=== PATIENT | male | born 1970 | race Caucasian/White ===

== ENCOUNTER 2019-12-27 10:53 | Emergency (ER) | payer OTHER, SELFPAY ==
[2019-12-27 11:13] VITALS: BP 150/100; PULSE 88; RESP 18; TEMP 36.3; O2SAT 95; BMI 36.6
--- NOTE | 2019-12-27 12:41 | ED.MEDCLEAR ---
HPI - Medical Clearance General Chief complaint: Medical Clearance <KEVIN Houser Last Filed: 12/27/19 14:01> Stated complaint: MEDICAL CLEARANCE <KEVIN Houser Last Filed: 12/27/19 14:01> Time Seen by Provider: 12/27/19 12:04 <KEVIN Houser Last Filed: 12/27/19 14:01> Source: patient <KEVIN Houser Last Filed: 12/27/19 14:01> Mode of arrival: ambulatory <KEVIN Houser Last Filed: 12/27/19 14:01> History of Present Illness HPI Narrative: 49-year-old male with the past medical history of bipolar, schizoaffective disorder presenting to ED requesting medication review for schizoaffective disorder. Reports feels like his dosages are too high. Denies recent change in medications. Does report missing about 4 days due to being out of the area. Denies SI/HI. <KEVIN Houser Last Filed: 12/27/19 14:01> Related Information Home medications: Home Medications Medication Instructions Recorded Confirmed benztropine 0.5 mg PO DAILY 12/27/19 12/27/19 lisinopril 10 mg PO DAILY 12/27/19 12/27/19 omega-3 fatty acids [[place] 3] 1,000 mg PO BID 12/27/19 12/27/19 risperidone 5 mg PO BID 12/27/19 12/27/19 simvastatin 20 mg PO DAILY 12/27/19 12/27/19 <KEVIN Houser Last Filed: 12/27/19 14:01> Allergies/Adverse reactions: Allergies Allergy/AdvReac Type Severity Reaction Status Date / Time No Known Allergies Allergy Unverified 12/06/19 17:12 <KEVIN Houser Last Filed: 12/27/19 14:01> Review of Systems Review of Systems: Constitutional: No Weight loss, No Fever, No Chills, No Night Sweats Cardiovascular: No Chest Pain, No SOB Respiratory: No Cough, No Sputum, No Wheezing Gastrointestinal: No Nausea, No Vomiting, No Diarrhea, No Constipation, No abdominal Pain Musculoskeletal: No joint pain, No Myalgias, No Joint Swelling Skin: No Skin Lesions, No rash Psych: No Anxiety/Panic, No Depression, No SI/HI/AH/VA <KEVIN Houser - Last Filed: 12/27/19 14:01> Yes all other systems are reviewed and are negative <KEVIN Houser - Last Filed: 12/27/19 14:01> Neurologic: Denies Sensory deficit (Neuro) <KEVIN Houser - Last Filed: 12/27/19 14:01> [facility] Past Medical History Attestation statement: The following information was validated with the patient. <KEVIN Houser - Last Filed: 12/27/19 14:01> Medical History: Medical History (Updated 12/27/19 @ 17:56 by Bernardo Rodriguez DO) Bipolar disorder <KEVIN Houser - Last Filed: 12/27/19 14:01> Social History Social History: Social History Alcohol intake: unknown Smoking Status: Unknown if ever smoked Smoked in Last 30 Days: No Use of substances other than those prescribed or required for medical reasons: Unknown Advance Directives: No Advance Directives Information Provided: No <KEVIN Houser - Last Filed: 12/27/19 14:01> Physical Exam Vital Signs and I&O and Narrative: Vital Signs and I&O: Vital Signs Temp 97.4 F 12/27/19 11:13 Pulse 88 12/27/19 11:13 Resp 20 12/27/19 15:18 BP 150/100 H 12/27/19 11:13 Pulse Ox 95 12/27/19 11:13 Intake & Output 12/26/19 12/27/19 12/27/19 18:59 06:59 18:59 Weight 115.666 kg Body Mass Index 36.6 <KEVIN Houser - Last Filed: 12/27/19 14:01> Vital Signs and I&O: Vital Signs Temp 97.4 F 12/27/19 11:13 Pulse 88 12/27/19 11:13 Resp 20 12/27/19 15:18 BP 150/100 H 12/27/19 11:13 Pulse Ox 95 12/27/19 11:13 Intake & Output 12/26/19 12/27/19 12/27/19 18:59 06:59 18:59 Weight 115.666 kg Body Mass Index 36.6 <Bernardo Rodriguez DO - Last Filed: 12/27/19 17:57> Const: General: cooperative <KEVIN Houser - Last Filed: 12/27/19 14:01> Limitations: no limitations <KEVIN Houser - Last Filed: 12/27/19 14:01> HENMT: Head: Yes normal to inspection <Ariana Wilson ID - Last Filed: 12/27/19 14:01> Ears: hearing grossly normal bilaterally <KEVIN Houser - Last Filed: 12/27/19 14:01> General nose exam: Normal external nose present <Ariana Wilson ID - Last Filed: 12/27/19 14:01> Face and sinus: Yes normal facial exam <KEVIN Houser - Last Filed: 12/27/19 14:01> Eyes: General: appearance normal, both eyes and all related structures <Ariana Wilson ID - Last Filed: 12/27/19 14:01> EOM: EOMs intact bilaterally <KEVIN Houser - Last Filed: 12/27/19 14:01> Neck: Neck: Yes normal visual inspection <KEVIN Houser - Last Filed: 12/27/19 14:01> Resp: Effort & Inspection: normal respiratory effort <KEVIN Houser - Last Filed: 12/27/19 14:01> Cardio: Rate: regular rate <Ariana Wilson ID - Last Filed: 12/27/19 14:01> Skin: Wounds: no wounds <KEVIN Houser - Last Filed: 12/27/19 14:01> Neuro: Gait exam (Neuro): Normal gait present <Ariana Wilson ID - Last Filed: 12/27/19 14:01> Sensory Exam: No Sensory deficit (Neuro) <KEVIN Houser - Last Filed: 12/27/19 14:01> Extrem: General: Yes normal to inspection <KEVIN Houser - Last Filed: 12/27/19 14:01> Psych: Other: withdrawn <Ariana Wilson ID - Last Filed: 12/27/19 14:01> Appearance: grossly normal <KEVIN Houser - Last Filed: 12/27/19 14:01> Mental Status: mental status grossly normal <KEVIN Houser - Last Filed: 12/27/19 14:01> Attitude: cooperative <KEVIN Houser - Last Filed: 12/27/19 14:01> Thought content: suicidality, no homicidality and no hallucinations <KEVIN Houser - Last Filed: 12/27/19 14:01> Course Course Course Narrative: -1400-- Received additional information from brother who is in waiting room. Reportedly patient has been wondering/ missing for 4 days, med noncompliance, and responding to internal stimuli. With this new information Section 12 signed and is in patient's chart <KEVIN Houser - Last Filed: 12/27/19 14:01> patient seen and evaluated by [facility] in crisis in which they state they have evaluated the patient and feel patient is safe to go home. <Bernardo Rodriguez DO - Last Filed: 12/27/19 17:57> MDM - Medical Clearance [facility] Narrative Medical decision making narrative: 49-year-old male with the past medical history of bipolar, schizoaffective disorder presenting to ED requesting medication review for schizoaffective disorder. On exam mildly hypertensive, NAD/ well-appearing. Denies suicidal/ homicidal ideations or auditory/ visual hallucinations plan: Will obtain [facility] evaluation <KEVIN Houser - Last Filed: 12/27/19 14:01> Medical Records Attestation: I reviewed the patient's medical records. <KEVIN Houser - Last Filed: 12/27/19 14:01> Lab Data Result diagrams: : 12/27/19 15:52 12/27/19 15:52 <KEVIN Houser - Last Filed: 12/27/19 14:01> Labs: Lab Results 12/27/19 12/27/19 12/27/19 Range/Units 15:39 15:52 15:52 WBC 5.6 (4.8-10.8) X10*3/uL RBC 4.62 (4.60-5.80) X10*6/uL Hgb 13.3 L (14.0-18.0) g/dl Hct 38.3 L (42-52) % MCV 82.9 (80-98) fL MCH 28.8 (27.0-33.0) pg MCHC 34.7 (31.0-36.0) g/dl RDW 13.2 (11.0-16.0) % Plt Count 168 (160-400) X10*3/uL MPV 11.5 (9.4-12.4) fL Immature Gran % (Auto) 0.5 H (0.0-0.4) % Neut % (Auto) 59.6 (45-73) % Lymph % (Auto) 31.0 (20-40) % Wilkin % (Auto) 5.1 (2-11) % Eos % (Auto) 3.4 (0-4) % Baso % (Auto) 0.4 (0-2) % Lymph # (Auto) 1.8 (1.2-4.9) X10*3/uL Wilkin # (Auto) 0.3 (0.1-1.2) X10*3/uL Eos # (Auto) 0.2 (0.0-0.4) X10*3/uL Baso # (Auto) 0.0 (0.0-0.2) X10*3/uL Abs Immat Gran (auto) 0.03 (0.00-0.03) X10*3/uL Absolute Neuts (auto) 3.4 (2.0-8.3) X10*3/uL Absolute Nucleated RBC 0.000 (0.0-0.012) X10*3/uL Nucleated RBC % (auto) 0.0 (0.0-0.2) /100WBC Sodium 139 (135-145) mmol/L Potassium 3.5 (3.3-5.1) mmol/l Chloride 105 (96-108) mmol/L Carbon Dioxide 26 (22-29) mmol/L Anion Gap 12 (12-20) BUN 12 (9-16) mg/dL Creatinine 1.05 (0.5-1.4) mg/dL Estim Creat Clear Calc 110.7 Estimated GFR > 60 Random Glucose 145 H (60-115) mg/dL Calcium 9.4 (8.4-10.2) mg/dL Total Bilirubin 0.7 (0.0-1.0) mg/dL Direct Bilirubin 0.2 (0.0-0.5) mg/dL AST 30 (5-37) U/L ALT 34 (0-40) U/L Alkaline Phosphatase 84 (39-117) U/L Total Protein 5.8 L (6.5-8.0) g/dL Albumin 3.9 (3.5-5.0) g/dL Urine Opiates Screen Not Detected (Not Detect) Ur Barbiturates Screen Not Detected (Not Detect) Ur Phencyclidine Scrn Not Detected (Not Detect) Ur Amphetamines Screen Not Detected (Not Detect) U Benzodiazepines Scrn Not Detected (Not Detect) Urine Cocaine Screen Not Detected (Not Detect) U Marijuana (THC) Screen Not Detected (Not Detect) <KEVIN Houser - Last Filed: 12/27/19 14:01> Lab Results 12/27/19 12/27/19 12/27/19 Range/Units 15:39 15:52 15:52 WBC 5.6 (4.8-10.8) X10*3/uL RBC 4.62 (4.60-5.80) X10*6/uL Hgb 13.3 L (14.0-18.0) g/dl Hct 38.3 L (42-52) % MCV 82.9 (80-98) fL MCH 28.8 (27.0-33.0) pg MCHC 34.7 (31.0-36.0) g/dl RDW 13.2 (11.0-16.0) % Plt Count 168 (160-400) X10*3/uL MPV 11.5 (9.4-12.4) fL Immature Gran % (Auto) 0.5 H (0.0-0.4) % Neut % (Auto) 59.6 (45-73) % Lymph % (Auto) 31.0 (20-40) % Wilkin % (Auto) 5.1 (2-11) % Eos % (Auto) 3.4 (0-4) % Baso % (Auto) 0.4 (0-2) % Lymph # (Auto) 1.8 (1.2-4.9) X10*3/uL Wilkin # (Auto) 0.3 (0.1-1.2) X10*3/uL Eos # (Auto) 0.2 (0.0-0.4) X10*3/uL Baso # (Auto) 0.0 (0.0-0.2) X10*3/uL Abs Immat Gran (auto) 0.03 (0.00-0.03) X10*3/uL Absolute Neuts (auto) 3.4 (2.0-8.3) X10*3/uL Absolute Nucleated RBC 0.000 (0.0-0.012) X10*3/uL Nucleated RBC % (auto) 0.0 (0.0-0.2) /100WBC Sodium 139 (135-145) mmol/L Potassium 3.5 (3.3-5.1) mmol/l Chloride 105 (96-108) mmol/L Carbon Dioxide 26 (22-29) mmol/L Anion Gap 12 (12-20) BUN 12 (9-16) mg/dL Creatinine 1.05 (0.5-1.4) mg/dL Estim Creat Clear Calc 110.7 Estimated GFR > 60 Random Glucose 145 H (60-115) mg/dL Calcium 9.4 (8.4-10.2) mg/dL Total Bilirubin 0.7 (0.0-1.0) mg/dL Direct Bilirubin 0.2 (0.0-0.5) mg/dL AST 30 (5-37) U/L ALT 34 (0-40) U/L Alkaline Phosphatase 84 (39-117) U/L Total Protein 5.8 L (6.5-8.0) g/dL Albumin 3.9 (3.5-5.0) g/dL Urine Opiates Screen Not Detected (Not Detect) Ur Barbiturates Screen Not Detected (Not Detect) Ur Phencyclidine Scrn Not Detected (Not Detect) Ur Amphetamines Screen Not Detected (Not Detect) U Benzodiazepines Scrn Not Detected (Not Detect) Urine Cocaine Screen Not Detected (Not Detect) U Marijuana (THC) Screen Not Detected (Not Detect) <Bernardo Rodriguez DO - Last Filed: 12/27/19 17:57> Discharge Plan Discharge Clinical Impression: Schizophrenia Qualifiers: Schizophrenia type: unspecified Qualified Code(s): F20.9 - Schizophrenia, unspecified <KEVIN Houser - Last Filed: 12/27/19 14:01> Patient Disposition: Home, Self-Care <KEVIN Houser Last Filed: 12/27/19 14:01> Instructions: Schizophrenia (ED) <KEVIN Houser - Last Filed: 12/27/19 14:01> Additional Instructions: Thank you for visiting the emergency department today. If your symptoms worsen or do not resolve completely please return to the emergency department immediately or call 911. if he have any questions please call your primary care physician <KEVIN Houser - Last Filed: 12/27/19 14:01> Prescriptions: No Action benztropine 0.5 mg Tablet 0.5 mg PO DAILY RF: 0 lisinopril 10 mg Tablet 10 mg PO DAILY RF: 0 [place] 3 Capsule 1,000 mg PO BID RF: 0 risperidone 2 mg Tablet 5 mg PO BID RF: 0 simvastatin 20 mg Tablet 20 mg PO DAILY RF: 0 <KEVIN Houser - Last Filed: 12/27/19 14:01> Referrals: Behavioral Health Specialist [Provider Group] - 2 days <KEVIN Houser - Last Filed: 12/27/19 14:01>
--- NOTE | 2019-12-27 13:56 | PC.NURSE ---
This RN spoke with patient's sister in law Layne. Layne reports that Lucien has been living with her and Lucien's brother since the mother approx 3 years ago. Reports that Lucien has a dx of Bipolar 1 with schizophrenic/delusional tendencies. He recently has started back with therapy. Layne reports that Lucien left the house for approximately 3-4 days and was sleeping in [place]. She reports that these type of occurrences are happening more frequently. Pt has [facility] come to the house for medication administration but they will not come back to the house until patient is evaluated by crisis and medically cleared. Layne Packer - sister in law [phone] PCP Wu Radford [phone]
[2019-12-27 15:18] VITALS: RESP 20
[2019-12-27 16:00] LABS: Basophils Percent Auto 0.4 % (0-2); Eosinophils Absolute Auto 0.2 X10*3/uL (0.0-0.4); Eosinophils Percent Auto 3.4 % (0-4); Hematocrit 38.3 % (42-52); Hemoglobin 13.3 g/dl (14.0-18.0); Imm Gran Abs Auto 0.03 X10*3/uL (0.00-0.03); Imm Gran Pct Auto 0.5 % (0.0-0.4); Lymphocytes Absolute Auto 1.8 X10*3/uL (1.2-4.9); MANUAL DIFF FLAG NO; Mean Corpuscular HGB Conc 34.7 g/dl (31.0-36.0); Mean Corpuscular Hemoglobin 28.8 pg (27.0-33.0); Mean Corpuscular Volume 82.9 fL (80-98); Mean Platelet Volume 11.5 fL (9.4-12.4); Monocytes Absolute Auto 0.3 X10*3/uL (0.1-1.2); Monocytes Percent Auto 5.1 % (2-11); Neutrophils Absolute Auto 3.4 X10*3/uL (2.0-8.3); Neutrophils Percent Auto 59.6 % (45-73); Platelet Count 168 X10*3/uL (160-400); Red Blood Count 4.62 X10*6/uL (4.60-5.80); Red Cell Distribution Width 13.2 % (11.0-16.0); White Blood Count 5.6 X10*3/uL (4.8-10.8)
[2019-12-27 16:31] LABS: Alanine Aminotransferase 34 U/L (0-40); Albumin Level 3.9 g/dL (3.5-5.0); Alkaline Phosphatase 84 U/L (39-117); Anion Gap 12 (12-20); Aspartate Amino Transferase 30 U/L (5-37); Bilirubin Direct 0.2 mg/dL (0.0-0.5); Bilirubin Total 0.7 mg/dL (0.0-1.0); Blood Urea Nitrogen 12 mg/dL (9-16); Calcium 9.4 mg/dL (8.4-10.2); Carbon Dioxide 26 mmol/L (22-29); Chloride 105 mmol/L (96-108); Creatinine Clr Calc Pharmacy 110.7; Estimated Glomerular Filt Rate > 60; Glucose Random 145 mg/dL (60-115); Potassium 3.5 mmol/l (3.3-5.1); Sodium 139 mmol/L (135-145); Total Protein 5.8 g/dL (6.5-8.0)
[2019-12-27 16:31] LABS: Amphetamine Screen Urine Not Detected (Not Detect); Barbiturates, Urine Not Detected (Not Detect); Benzodiazepines Screen Urine Not Detected (Not Detect); Cannabinoid Screen Urine Not Detected (Not Detect); Cocaine Screen Urine Not Detected (Not Detect); Opiate Screen Urine Not Detected (Not Detect); Phencyclidine Screen Urine Not Detected (Not Detect)
--- NOTE | 2019-12-27 17:05 | PC.NURSE ---
[facility] AT THE BEDSIDE WITH PATIENT
--- NOTE | 2019-12-27 17:41 | PC.NURSE ---
Spoke with JANESSA, who is verifying patient story with patients brother.
[2019-12-27 17:58] VITALS: PULSE 90; RESP 18
--- NOTE | 2019-12-27 17:58 | PC.NURSE ---
patient is cleared by n. will go home with family.
== END 2019-12-27 18:21 | disposition home or self-care (01) ==
PROVIDERS: Physician Assistant; Emergency Provider Emergency Medicine; PCP Internal Medicine
DX: F20.9 Schizophrenia, unspecified (principal); Z79.899 Other long term (current) drug therapy
CPT/HCPCS: 36415; 80048; 80076; 80307; 85025; 99284